=== PATIENT | female | born 1940 | race Caucasian/White ===

== ENCOUNTER 2018-11-23 20:52 | Inpatient (IN) ==
[2018-11-23 21:17] LABS: BE -9.7 mmoll (-3.0-3.0); BLOOD TYPE ARTERIAL; HCO3-(ACT) 17.4 mmoll (20.0-26.0); O2(CT) 19.9 mL/dL (15.0-23.0); O2HB 97.2 % (95.0-99.0); PCO2(98.6) 29 mmHg (35-45); PO2(98.6) 182 mmHg (60-100); SAMPLE BLOOD; SAO2 100.3 % (95.0-100.0); THB 14.3 g/dL (11.5-17.4); pH(98.6) 7.32 (7.35-7.45)
[2018-11-23 21:19] LABS: ALLEN TEST NO; MODALITY CANNULA
--- NOTE | 2018-11-23 21:43 | Diag Imaging Result Doc PS360 ---
EXAM: CHEST-PORTABLE INDICATION: SOB TECHNIQUE: One view COMPARISON: 10/08/2018 FINDINGS: There is stable chronic appearing interstitial thickening throughout both lungs. There is more gas focal scarring in the right suprahilar region that is stable. There is stable platelike scarring versus atelectasis in the left midlung zone. No new consolidation is appreciated. There is no discrete pleural fluid collection or pneumothorax. Cardiac silhouette is unremarkable. IMPRESSION: Stable fibrotic changes as described. No definite acute chest pathology by plain radiograph. Electronically signed by Brady Goldstein 11/23/2018 9:40 PM
[2018-11-23 22:03] LABS: INFLUENZA A NEGATIVE (NEGATIVE); INFLUENZA B NEGATIVE (NEGATIVE)
[2018-11-23 22:11] LABS: INR 0.87; PROTIME 12.3 Seconds (11.0-16.0)
[2018-11-23 22:12] LABS: PTT 20.6 Seconds (22.3-41.8)
[2018-11-23 22:19] LABS: BASO# 0.01 X1000 (0.0-0.2); BASO% 0.1 % (0.0-0.8); EOS% 0.6 % (0.0-10.0); HEMOGLOBIN 14.2 g/dL (12.0-16.0); IMM GRAN# 0.05 X1000 (0.0-0.04); IMM GRAN% 0.3 % (0.0-0.5); LYMPH# 1.18 X1000 (1.2-3.4); LYMPH% 6.7 % (20.5-51.1); MCH 31.1 PG (27-31); MCHC 33.8 g/dL (33-37); MCV 92.1 FL (81-99); MONO% 6.3 % (1.7-9.3); NEUT# 15.08 X1000 (1.4-6.5); PLT 165 X1000 (130-400); RBC 4.56 XMIL (4.2-5.4); RDW 13.5 % (11.5-14.5); WBC 17.52 X1000 (4.8-10.8)
[2018-11-23 22:32] LABS: ALBUMIN 4.4 g/dL (3.5-5.0); CALCIUM 9.5 mg/dL (8.8-10.2); CREATININE 1.7 mg/dL (0.5-0.9); TOTAL BILIRUBIN 0.6 mg/dL (0.20-1.00); TOTAL PROTEIN 6.4 g/dL (6.3-8.3)
[2018-11-23] MEDS ORDERED: ROCEPHIN 1 GM in NS 50 ML IV ONE (22:32)
[2018-11-23] MEDS ORDERED: ZITHROMAX PO ONE (22:32)
[2018-11-23 22:34] LABS: POTASSIUM 8.1 mmol/L (3.5-5.1)
[2018-11-23] MEDS ORDERED: D50W SYRINGE IV ONE (22:34)
[2018-11-23] MEDS ORDERED: HUMULIN R IV ONE (22:35)
[2018-11-23] MEDS ORDERED: KAYEXALATE PO ONE (22:35)
[2018-11-23 22:36] LABS: MAGNESIUM 1.7 mg/dL (1.5-2.7)
[2018-11-23 22:54] LABS: CK INDEX 1.9 (0.0-2.5); CK-MB 11.85 ng/mL (0.0-5.0)
--- NOTE | 2018-11-23 23:40 | EKG Report ---
Test Performed on : 11/23/2018 11:30:41 PM Test Reason : SYANOTIC Blood Pressure : / mmHG Vent. Rate : 078 BPM Atrial Rate : 078 BPM P-R Int : 132 ms QRS Dur : 082 ms QT Int : 480 ms P-R-T Axes : 041 -12 101 degrees QTc Int : 547 ms Sinus rhythm. with frequent premature ventricular complexes. Possible Anterior infarct (cited on or before 08-OCT-2018) ST & T wave abnormality, consider lateral ischemia Abnormal ECG When compared with ECG of 08-OCT-2018 19:05, (Unconfirmed) fusion complexes are no longer present T wave inversion now evident in Lateral leads QT has lengthened Unconfirmed Result
[2018-11-24 01:43] LABS: BILIRUBIN URINE 1+ (NEGATIVE); BLOOD URINE 4+ (NEGATIVE); KETONE URINE 1+(Small) mg/dL (NEGATIVE); LEUKOCYTES URINE TRACE (NEGATIVE); NITRITE URINE NEGATIVE (NEGATIVE); PROTEIN URINE 1+(30 mg/dL) mg/dL (NEGATIVE); UROBILINOGEN URINE NORMAL
[2018-11-24 01:44] LABS: CLARITY SL. CLOUDY (CLEAR); COLOR AMBER; URINE BACTERIA 1+ /HFP; URINE EPITHELIAL CELLS <10 /HPF (<10); URINE SOURCE CATH; URINE WBC <10 /HPF (<10)
[2018-11-24 01:45] LABS: URINE CAST GRANULAR PRESENT /LPF
--- NOTE | 2018-11-24 02:51 | PROVIDER DOCUMENTATION ---
This chart was entered by Jordi Frias Scribe, acting as scribe for Markus Weston MD. HPI-General Adult - General Chief Complaint: Fall Stated Complaint: FALL Time Seen by Provider: 11/23/18 21:00 Source: patient Allergies/Adverse Reactions: Patient Allergies Allergy/AdvReac Type Severity Reaction Status Date / Time acetaminophen [From [place]] Allergy Unknown Verified 10/08/18 18:09 hydrocodone [From [place]] Allergy Unknown Verified 10/08/18 18:09 Home Medications: Home Medication List Medication Instructions Recorded Confirmed Last Taken Type Gabapentin 300 mg PO TID 03/16/15 11/23/18 03/18/15 19:00 History Donepezil HCl 1 tab PO DAILY 11/23/18 11/23/18 Unknown History Ergocalciferol (Vitamin D2) 1 cap PO DIRECTED 11/23/18 11/23/18 Unknown History [Vitamin D2] Memantine HCl 1 tab PO BID 11/23/18 11/23/18 Unknown History Potassium Chloride [Klor-Con M20] 1 tab PO TID 11/23/18 11/23/18 Unknown History Sertraline [Zoloft] 1 tab PO DAILY 11/23/18 11/23/18 Unknown History - History of Present Illness -Gen Adult Nature of Presenting Problems: Pt is a 77 yof who presents to the ED via EMS with a CC of a fall. EMS reports the pt stated she has fallen four times today in her bedroom, and states the pt hit her head on the last fall. Pt states she did not lose consciousness. EMS reports pt has "early dementia." Pt is currently complaining of a headache. Pt also complains of having a cough for 1-2 weeks with sputum production and describes the sputum as clear and thick. Pt reports a hx of lung cancer. Pt denies being SOB but EMS states the highest oxygen saturation they recorded was 70-80% on 15% mask. Upon examination pt was cyanotic to the hands and feet. Pt incorrectly stated the current month and year, but correctly stated the current president's name. Pt also reports she lives at home with her son. Location of Pain/Injury: reports: head (Headache) Quality of Pain: reports: aching Severity: reports: mild Onset/Duration: reports: just prior to arrival, 1/2 hour ago Timing: reports: still present Context/Activities at Onset: reports: light activity Associated Symptoms: reports: sinus congestion/drainage Similar Symptoms Previously?: No Recently seen or treated by another doctor?: No Review of Systems - Adult - REVIEW OF SYSTEMS - ADULT Constitutional: reports: see HPI. denies: chills, fever, fatique, night sweats Eyes: reports: no symptoms reported Ears, Nose, Mouth & Throat: reports: no symptoms reported Cardiovascular: reports: no symptoms reported Respiratory: reports: no symptoms reported Gastrointestinal: reports: no symptoms reported Genitourinary: reports: no symptoms reported Musculoskeletal: reports: no symptoms reported Integumentary: reports: no symptoms reported Neurological: reports: see HPI, ataxia, headache/migraines (headache), loss of balance. denies: paresthesia, seizure, slurred speech, syncope, tremors Psychiatric: reports: no symptoms reported Endocrine: reports: no symptoms reported Hematologic/Lymphatic: reports: no symptoms reported Allergic/Immunologic: reports: no symptoms reported All Other Systems: Reviewed and Negative Past History - Adult - PAST MEDICAL HISTORY-ADULT Review of Records: reports: Old Records Reviewed, Nursing Assessment Review, Medications Reviewed, Social history reviewed & non-contributory. Major Childhood Illnesses: reports: denies history Cardiovascular: reports: denies history Respiratory: reports: cancer (lung) Gastrointestinal: reports: denies history Obstetrical/Gynecological: reports: denies history Genitourinary: reports: denies history Musculoskeletal: reports: denies history Neurological: reports: denies history Endocrine/Immune: reports: denies history Other Conditions: reports: denies history - IMMUNIZATION STATUS Childhood Immunizations: See Nurse Assessment Flu Vaccine: See Nurse Assessment - FAMILY HISTORY Family History: reviewed, not pertinent - SOCIAL HISTORY Smoking: denies, quit greater than 1 year Substance Use: none/never, denies Alcohol Use Frequency: never Physical Exam-General - PHYSICAL EXAM-ADULT Initial Vital Signs Reviewed: Yes - CONSTITUTIONAL General Appearance: appears well, alert, mild distress. negative: severe distress, cachetic, obese, anxious - EYES Eyes: PERRL/EOMI. negative: photophobia, sclera injected, scleral icterus - NECK Neck: non-tender, full range of motion. negative: limited range of motion, lymphadenopathy, meningismus, trachial deviation, tender lateral - RESPIRATORY Respiratory: chest non-tender, lungs clear, normal breath sounds, no pleuratic chest pain, no respiratory distress, no accessory muscle use. negative: accessory muscle use, crackles, rales, rhonchi, stridor, wheezing, dull on percussion - CARDIOVASCULAR Cardiovascular: normal peripheral pulses, regular rate, rhythm, no edema, no gallop, no JVD, no murmur. negative: bradycardia, tachycardia, diastolic murmur, systolic murmur, gallop/S4, friction rub - GASTROINTESTINAL (ABDOMEN) Abdominal Exam: normal bowel sounds, non tender, soft. negative: guarding, rigid, rebound, tenderness, hernia, mass, hepatomegaly - MUSCULOSKELETAL Extremity: normal range of motion, non-tender, normal gait. negative: no calf tenderness, normal capillary refill, calf tenderness, deformity, erythema, inflammation - SKIN Integumentary: cyanosis (Toes and fingers). negative: jaundice, laceration(s), mottled, pallor, petechiae, rash, swelling, tenderness - NEUROLOGIC Neurologic: grossly normal, no motor/sensory deficits. negative: abnormal gait, aphasia, EOM palsy, facial droop, focal weakness - PSYCHIATRIC Psych/Mental Status: normal mood/affect, normal thought process. negative: disoriented x 3, anxious, disheveled, depressed affect Progress - PLAN OF CARE/RESULTS Progress/Plan/Lab Results: Vital Signs - 8 hr 11/23/18 20:46 Temperature 97.8 F Pulse Rate 59 L Respiratory Rate 20 Blood Pressure 148/108 Orders Category Date Time Status ABG [RESP] Routine Lab 11/23/18 20:59 Ordered Result Diagrams: 11/23/18 21:50 11/23/18 21:51 - REASSESSMENT Reassessment #1 Time Reassessed: 22:37 Status: unchanged (CXR read as stable fibrotic per dr Brady Goldstein. however, some degree of infiltrate could be hidden. note leukocytosis, note re-checked and non-hemolysed hyperkalemia: rocephin,D50,insulin. pending renal fxn before ordering CT scans) Reassessment #2 Time Reassessed: 02:46 Status: improving (LEUKOCTOSIS, OCUGHING THICK FOUL SPUTUM. PROBABLE PNEUMONIA. 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 NO LACTIC ACIDOSIS. ADMIT TO ICU. ELEV Cr AND ELEV BNP.) - EKG 1 Time of EKG reading by physician:: 23:34 EKG Read and Signed by:: Markus Weston EKG Interpretation (*Must complete 3 of following elements*): Abnormal (Possible anterior infarct, age undetermined; ST & T wave abnormality, consider lateral ischemia; Abnormal ECG; No STEMI) Rate: 78 Rhythm: Sinus rhythm with frequent premature ventricular complexes [place]: normal QRS: normal [place] Interval: normal ST Wave: normal - XRAY 1 XRAY: Bilateral XRAY Study: Chest Impression: See EMR Report ( EXAM: CHEST-PORTABLE INDICATION: SOB TECHNIQUE: One view COMPARISON: 10/08/2018 FINDINGS: There is stable chronic appearing interstitial thickening throughout both lungs. There is more gas focal scarring in the right suprahilar region that is stable. There is stable platelike scarring versus atelectasis in the left midlung zone. No new consolidation is appreciated. There is no discrete pleural fluid collection or pneumothorax. Cardiac silhouette is unremarkable. IMPRESSION: Stable fibrotic changes as described. No definite acute chest pathology by plain radiograph. Electronically signed by Brady Goldstein 11/23/2018 9:40 PM 11/23/182139 Interpr eting Physician: Brady Goldstein MD Dictated Date/Time: 11/23/182137 cc: Markus Weston MD;) - CT/MRI 1 CT Study: Head Impression: See EMR Report (Findings: 4.3 mm saccular aneurysm of the M2 segment right middle cerebral artery, image 57 series 2. No acute intracranial hemorrhage, hydrocephalus or shift. No acute fracture or suspicious bone lesion. Impression: No acute intracranial disease. 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 Recommend consideration for CT angiography brain. Signed by Garrett Solomon MD 11/24/18 1:51) Comparison with other Films: no prior study - CONSULTS/PCP/HOSPITALIST Notification #1 *Consult/PCP/Hospitalist*: DR GREER Time Discussed: 02:46 Consult Disposition: Admit (ICU) Departure - Departure Date of Disposition Decision: 11/23/18 Time of Disposition Decision: 02:49 DIAGNOSIS: Pneumonia, Leukocytosis, unspecified, Hyperkalemia, Elevation of cardiac enzymes Disposition: ADMITTED INPATIENT 09 Certified Medical Emergency: Emergent Condition: Fair Referrals and Follow-Ups: None,PCP [Primary Care Provider] - - Critical Care Note This patient required my direct & personal management of CC.: No Attestation - Physician/ CARMELINA Attestation Patient care was provided by Advanced Practice Provider:: No The physician spent face to face time with patient:: Yes Advanced Practice Provider documentation review:: Supervising physician onsite and consulted in the evaluation and care of this patient. The physician did have a face to face encounter with the patient. This chart was documented by the indicated scribe, (Jordi Frias Scribe) and accurately reflects the services I performed and decisions made by me, Markus Weston MD, as attested by the provider's signature.
[2018-11-24 04:47] LABS: POTASSIUM 5.8 mmol/L (3.5-5.1)
[2018-11-24 04:48] LABS: CK INDEX 2.2 (0.0-2.5); CK-MB 11.29 ng/mL (0.0-5.0)
[2018-11-24] MEDS ORDERED: NS 1,000 ML IV ONE ×2 (05:10→11:06)
[2018-11-24] MEDS: DUONEB (A & A) INH SCH ×6 (06:47→22:43)
[2018-11-24 07:59] LABS: BASO# 0.01 X1000 (0.0-0.2); BASO% 0.1 % (0.0-0.8); EOS# 0.01 X1000 (0.0-0.7); EOS% 0.1 % (0.0-10.0); HEMATOCRIT 35.4 % (37.0-47.0); HEMOGLOBIN 11.7 g/dL (12.0-16.0); IMM GRAN# 0.03 X1000 (0.0-0.04); IMM GRAN% 0.3 % (0.0-0.5); LYMPH# 1.16 X1000 (1.2-3.4); LYMPH% 10.6 % (20.5-51.1); MCH 31.3 PG (27-31); MCHC 33.1 g/dL (33-37); MCV 94.7 FL (81-99); MONO# 0.64 X1000 (0.11-0.59); MONO% 5.9 % (1.7-9.3); MPV 11.2 FL (7.4-10.4); NEUT# 9.08 X1000 (1.4-6.5); PLT 138 X1000 (130-400); RBC 3.74 XMIL (4.2-5.4); RDW 13.5 % (11.5-14.5); WBC 10.93 X1000 (4.8-10.8)
[2018-11-24 08:41] LABS: ALBUMIN 3.3 g/dL (3.5-5.0); CALCIUM 8.4 mg/dL (8.8-10.2); CREATININE 1.5 mg/dL (0.5-0.9); POTASSIUM 5.1 mmol/L (3.5-5.1); TOTAL BILIRUBIN 0.5 mg/dL (0.20-1.00); TOTAL PROTEIN 5.4 g/dL (6.3-8.3)
[2018-11-24 09:19] LABS: CK INDEX 2.4 (0.0-2.5); CK-MB 8.74 ng/mL (0.0-5.0)
[2018-11-24] MEDS: ARICEPT PO SCH (09:40)
--- NOTE | 2018-11-24 09:53 | Diag Imaging Result Doc PS360 ---
EXAM: CT HEAD W/O CONTRAST INDICATION: fall, head injury TECHNIQUE: This exam was performed using automated exposure control, adjustment of mA or kV according to patient size, and/or use of iterative reconstruction technique. COMPARISON: 10/08/2018 FINDINGS: There is age-appropriate diffuse brain atrophy. There is no definite acute infarct given the limited sensitivity of CT versus MRI. There is rounded focal prominence involving the M2 segment of the right MCA adjacent to the anterior right temporal lobe that can be seen on image 56 of series 2. It is possible this represents a small aneurysm. It measures approximately 5 mm. It was probably present on the previous studies dating back to 2016 and is likely stable. However, it is better appreciated due to the thin slices of the current study is compared to previous studies. If clinically warranted, CTA of the head without the confirm this. Otherwise, there is no discrete intracranial mass, mass effect, or intracranial hemorrhage. The surrounding soft tissues and bony structures are essentially unremarkable. IMPRESSION: 1.Questionable small aneurysm involving the M2 segment of the right MCA. Please see above discussion. 2.No evidence of acute intracranial pathology by CT. Electronically signed by Brady Goldstein 11/24/2018 9:51 AM
[2018-11-24] MEDS ORDERED: NS 1,000 ML ONE (14:15)
--- NOTE | 2018-11-24 14:18 | HISTORY AND PHYSICAL ---
PRIMARY CARE PHYSICIAN: Dr. Mayorga in [place]. CHIEF COMPLAINT: Confusion. HISTORY OF PRESENT ILLNESS: This is a 77-year-old female that presents to the ED per EMS for 4 falls stating that she was concerned she had hit her head. Complains of headache but no loss of consciousness and EMS stated that she has "early dementia." Patient complained of coughing for 1 to 2 weeks. EKG in the ER shows sinus rhythm with frequent PVCs, ST and T-wave abnormalities. Chest x-ray showed stable fibrotic changes. CT of the head showed no acute intracranial disease, but did present a 4.3 cm in diameter aneurysm in the right middle cerebral artery without evidence of a bleed. PAST MEDICAL HISTORY: 1. Lung cancer. 2. Right upper lobe squamous cell. 3. Anxiety. PAST SURGICAL HISTORY: 1. Hysterectomy. 2. Back, thoracic fractures to 2 and 3 in September of 2015. FAMILY HISTORY: Positive for Alzheimer's and positive for heart disease and dementia in other family members. SOCIAL HISTORY: The patient is a former smoker, quit in 2016; had a 2 pack per day smoking history for 55 years. Denies alcohol and illicit drug use. retired farmworker and business and financial counsel. live at home with her son. REVIEW OF SYSTEMS: General: Patient denies any fevers, chills at this time, or weight changes. HEENT: Patient denies congestion, rhinorrhea. Headache on admission to the emergency room. Denies headache presently. Denies vision changes, hoarseness, or dizziness. Neck: Denies neck pain. Endocrine: Denies excessive thirst, urination, intolerance to heat or cold. CV: Denies palpitations, chest pain, orthopnea. Respiratory: The patient does state she had a cough for 1 to 2 weeks with foul sputum. GI: Denies anorexia, nausea, vomiting, or pain. Denies diarrhea, constipation. : No urinary urgency, frequency, or burning. Musculoskeletal: No symptoms noted. Skin: No symptoms reported. Neurologic: The patient denies any paresthesias, seizures, syncope, or tremors. The patient does state she has had a loss of balance. Psychiatric: No psychiatric symptoms. History of anxiety. Hematologic: Denies bruising. ALLERGIES: Patient is allergic to acetaminophen and hydrocodone. HOME MEDICATIONS: Gabapentin 300 mg p.o. t.i.d., donepezil HCl 1 tab p.o. daily, vitamin B2 one capsule p.o. as directed, memantine 1 tablet p.o. b.i.d., potassium 1 tablet p.o. t.i.d., and Zoloft 1 tablet p.o. daily. Medications will be reconciled. LABORATORY: WBCs of 10.93, RBCs 3.74, hemoglobin and hematocrit are 11.7 and 35.4. PT 12.3, INR 0.87, PTT of 20.6. D-dimer 4.05. Admission blood gases showed a pH of 7.32, pCO2 29, PO2 of 182, HCO3 of 17.4 with a base excess of -0.97. Sodium 137, potassium initially 8.1 and now 5.1, chloride of 109, carbon dioxide of 15, BUN of 30 with a creatinine initial 1.7 and now 1.5, calcium of 8.4, magnesium 1.5. CK of 630 and now 369, CK-MB of 11.85 and 11.29. UA shows cloudy with positive +1 protein, +1, ketone, negative for nitrates, +1 bacteria. Influenza A and B are negative. Chest x-ray showed stable fibrotic changes as described. No definite acute chest pathology. EKG was sinus rhythm with frequent PVCs, ST-T wave abnormality. PHYSICAL EXAMINATION: VITAL SIGNS: Temperature 97.9, heart rate 98, respirations 18, blood pressure 116/66, and 95% on room air. GENERAL: This is a female, appears well nourished. HEENT: Normocephalic. PERRLA. Mucous membranes were moist. NECK: Supple with no lymphadenopathy noted. Trachea was midline. No JVD noted. CV: No murmurs, gallops, rubs were noted. Rate and rhythm were regular. RESPIRATORY: Slight wheezes to posterior bases bilaterally. Nonlabored respirations. No accessory muscle use. GI: Abdomen is soft and nontender. Bowel sounds x4 quadrants. NEUROLOGIC: Cranial nerves 2-12 grossly intact. MUSCULOSKELETAL: Patient was able to move all 4 extremities with 5/5 equal hand grasps. SKIN: Warm, dry, and intact. ASSESSMENT: 1. Pneumonia. 2. Leukocytosis. 3. Hyperkalemia. 4. Frequent falls 5. Elevated D Dimer 6. Mildly elevated troponins in setting of CKD 7. CKD 8. Brain anuerysm 4.3cm Right middle cerebral artery PLAN: Will admit to [facility] intensive care unit. Activity bed rest. Vital signs q.4 hours. Heart healthy diet. blood cultures, CMP, urine culture, CBC with differential, CK profile, and troponins q.8. CT of the head without contrast. Home medications reconciled and ordered. Medications albuterol treatment q.4 hours, donepezil. Normal saline at 100 mL/h, azithromycin 500 mg p.o. x1 dose. Ceftriaxone 1G x1 dose, dextrose D5 50 mL x1 dose, insulin 10 units IV 1 dose given, and Kayexalate was administered per ER. Further recommendations will be pending per patient's clinical course and response to therapy. Dictated by ABBEY Acosta for Syd Dhaliwal MD cc: Syd Dhaliwal MD [facility]
[2018-11-24] MEDS: ZOSYN 2.25 GM in NS 50 ML IV SCH ×2 (14:20→20:01)
[2018-11-24] MEDS: NS 1,000 ML IV SCH ×2 (15:30→20:01)
[2018-11-24 16:58] LABS: CK INDEX 2.8 (0.0-2.5); CK-MB 7.75 ng/mL (0.0-5.0)
--- NOTE | 2018-11-24 19:39 | HISTORY AND PHYSICAL ---
ADDENDUM: Patient seen and examined by myself. Full note dictated and discussed with nurse practitioner. Patient presented to the hospital due to acute metabolic encephalopathy. She is confused, disoriented. We will admit her to the hospital. Uncertain etiology of her current symptomatology. We will place her on antibiotics and will follow. She currently is in the ICU. cc: Syd Dhaliwal MD
[2018-11-25] MEDS: ZOSYN 2.25 GM in NS 50 ML IV SCH ×3 (01:13→17:24)
[2018-11-25] MEDS: DUONEB (A & A) INH SCH ×6 (03:12→22:51)
[2018-11-25] MEDS: NS 1,000 ML IV SCH ×3 (04:13→20:06)
[2018-11-25 05:52] LABS: CREATININE 1.1 mg/dL (0.5-0.9); POTASSIUM 3.6 mmol/L (3.5-5.1)
[2018-11-25 05:53] LABS: ALBUMIN 2.8 g/dL (3.5-5.0); CALCIUM 7.3 mg/dL (8.8-10.2); TOTAL BILIRUBIN 0.5 mg/dL (0.20-1.00); TOTAL PROTEIN 4.4 g/dL (6.3-8.3)
[2018-11-25 05:58] LABS: BASO# 0.01 X1000 (0.0-0.2); BASO% 0.2 % (0.0-0.8); EOS# 0.03 X1000 (0.0-0.7); EOS% 0.5 % (0.0-10.0); HEMATOCRIT 30.2 % (37.0-47.0); HEMOGLOBIN 9.7 g/dL (12.0-16.0); IMM GRAN# 0.02 X1000 (0.0-0.04); IMM GRAN% 0.3 % (0.0-0.5); LYMPH# 0.72 X1000 (1.2-3.4); MCH 30.4 PG (27-31); MCHC 32.1 g/dL (33-37); MCV 94.7 FL (81-99); MONO# 0.33 X1000 (0.11-0.59); MONO% 5.1 % (1.7-9.3); NEUT# 5.42 X1000 (1.4-6.5); NEUT% 82.9 % (42.2-75.2); PLT 116 X1000 (130-400); RBC 3.19 XMIL (4.2-5.4); RDW 13.4 % (11.5-14.5); WBC 6.53 X1000 (4.8-10.8)
--- NOTE | 2018-11-25 07:42 | Diag Imaging Result Doc PS360 ---
CHEST-PORTABLE - 11/25/2018 INDICATION: dyspnea COMPARISON: 11/23/2018 FINDINGS: Stable right suprahilar opacity at the mediastinum. There is some worsening patchy infiltrate mainly in the left lower lobe with poor visualization of the left hemidiaphragm. Otherwise stable scattered linear atelectasis in both midlungs. Heart size remains stable. IMPRESSION: Worsening, very mild atelectasis or infiltrate in the left lower lobe. Electronically signed by Mauricio Valderrama 11/25/2018 7:40 AM
[2018-11-25] MEDS: ARICEPT PO SCH (11:24)
--- NOTE | 2018-11-25 22:43 | PROGRESS NOTE ---
DATE: 11/25/2018 SUBJECTIVE: Patient is much improved. She has no complaints. PHYSICAL EXAMINATION: Vital Signs: Temperature 99 degrees, pulse 78, respiratory 18, BP 96/56. General: Patient is awake, alert. She is answer equal answering questions, responding to commands. She is much improved from yesterday's exam where she was completely sedated and nonverbal. HEENT: Normocephalic. Neck: Supple. Cardiovascular: Regular rate. No murmurs. Chest: Clear, nonlabored. Abdomen: Soft, nondistended. Extremities: Moves all extremities. ASSESSMENT: 1. Probable urinary tract infection. 2. Pneumonia. 3. Leukocytosis, improved. White count is down from 17 to 6. 4. Hyperkalemia, resolved. 5. Acute renal failure, improved. 6. Volume depletion, improved. 7. Elevated D-dimer. Improved down from 4 to 0.9. Ultrasound pending. 8. Frequent falls. 9. History of brain aneurysm. PLAN: We will continue patient in the hospital. Continue antibiotics, IV fluids, symptomatic control and we will follow. cc: Syd Dhaliwal MD
[2018-11-26] MEDS: ZOSYN 2.25 GM in NS 50 ML IV SCH ×4 (00:14→20:24)
[2018-11-26] MEDS: DUONEB (A & A) INH SCH ×6 (03:43→22:52)
[2018-11-26] MEDS: NS 1,000 ML IV SCH (04:19)
[2018-11-26 06:37] LABS: HEMATOCRIT 31.4 % (37.0-47.0); HEMOGLOBIN 10.2 g/dL (12.0-16.0); MCH 30.1 PG (27-31); MCHC 32.5 g/dL (33-37); MCV 92.6 FL (81-99); MPV 11.2 FL (7.4-10.4); RBC 3.39 XMIL (4.2-5.4); RDW 13.3 % (11.5-14.5); WBC 8.15 X1000 (4.8-10.8)
[2018-11-26 07:01] LABS: AGAP 11; CHLORIDE 113 mmol/L (98-107); GLUCOSE 85 mg/dL (70-104); POTASSIUM 2.7 mmol/L (3.5-5.1); SODIUM 144 mmol/L (136-145); TCO2 19 mmol/L (25-35)
[2018-11-26 07:02] LABS: ALBUMIN 2.7 g/dL (3.5-5.0); ALKALINE PHOSPHATASE 50 U/L (32-104); BUN 11 mg/dL (8-22); CALCIUM 7.1 mg/dL (8.8-10.2); COSMO 285; CREATININE 0.8 mg/dL (0.5-0.9); ESTIMATED GFR > 60; GOT 34 U/L (10-30); GPT 14 U/L (10-36); MAGNESIUM 1.1 mg/dL (1.5-2.7); TOTAL PROTEIN 4.6 g/dL (6.3-8.3)
[2018-11-26] MEDS: ARICEPT PO SCH (08:41)
[2018-11-26] MEDS ORDERED: KLOR-CON PO ONE (10:38)
[2018-11-26] MEDS ORDERED: MAGNESIUM SULFATE 2 GM/S.W.I. 2 GM/50 ML IVPB IV ONE (10:39)
[2018-11-26] MEDS: POTASSIUM CHLORIDE 20 MEQ/SWI 20 MEQ/100 ML IVPB IV SCH ×2 (11:44→14:21)
[2018-11-26] MEDS ORDERED: NS 1,000 ML IV SCH (12:54)
[2018-11-26] MEDS ORDERED: SEROQUEL PO PRN (13:17)
[2018-11-26] MEDS: MUCOMYST 20% INH SCH ×2 (14:50→19:21)
--- NOTE | 2018-11-26 14:57 | PROGRESS NOTE ---
DATE: 11/26/2018 SUBJECTIVE: Patient has no major complaints. She is very confused intermittently. OBJECTIVE: Blood pressure 141/79, heart rate 78, respiratory rate 20, temperature 98 degrees, 95% on room air. Cardiovascular: Regular rate and rhythm. Pulmonary: Bilateral breath sounds clear to auscultation. GI: Soft, nontender, nondistended. Bowel sounds were positive. Extremities: No clubbing or cyanosis. Lymphatic Examination: No peripheral edema. She is sitting up in bed, eating. Seems to be doing okay. Laboratory Data: White count is 8, hemoglobin and hematocrit 10 and 31, platelets 132,000. Potassium is down to 2.7. When she came in, it was 8. Her creatinine is down to 0.8 and her magnesium is 1.1. PROBLEM LIST: 1. Pneumonia which has worsened per x-ray. I think some of that may be just atelectasis from her respiratory status. We will continue breathing exercises. Add Mucomyst, spirometry, Acapella, and follow. Her white count is improved. She is afebrile. Clinically, she looks improved. X-rays sometimes may lag in improvement. 2. Acute renal failure. That has also improved. 3. Now hypokalemia. That is resolved. Hyper is resolved. I am not quite sure why she is losing so much potassium. We will evaluate for renal losses and follow. We will check some other measures. Her magnesium level is low. Sometimes that can also be associated with persistent hypokalemia. 4. Encephalopathy. She has baseline dementia. Obviously, it has worsened since she has been in the hospital but we will continue to monitor. I will add some low-dose Seroquel at night and we will continue to follow. DISPOSITION: Pending her clinical status. We need to see how she does, kind of getting up and around, and discuss with family about what they want to do long-term. We will continue to follow closely. cc: Conrad Givens MD
[2018-11-26] MEDS ORDERED: STERILE WATER INJ. INJ PRN (16:18)
[2018-11-26] MEDS ORDERED: STERILE WATER INJ. INJ ONE (16:18)
[2018-11-26] MEDS ORDERED: GEODON IM ONE (16:18)
[2018-11-26] MEDS ORDERED: GEODON IM PRN (16:18)
[2018-11-26] MEDS: ZYVOX 600 MG/D5W 600 MG/300 ML IVPB IV SCH (18:34)
[2018-11-26] MEDS ORDERED: ATIVAN IV PRN (21:01)
[2018-11-27] MEDS: ZOSYN 2.25 GM in NS 50 ML IV SCH ×4 (02:55→20:42)
[2018-11-27] MEDS: DUONEB (A & A) INH SCH ×6 (03:38→23:42)
[2018-11-27 07:19] LABS: HEMATOCRIT 32.6 % (37.0-47.0); HEMOGLOBIN 10.8 g/dL (12.0-16.0); MCH 30.6 PG (27-31); MCHC 33.1 g/dL (33-37); MCV 92.4 FL (81-99); PLT 135 X1000 (130-400); RBC 3.53 XMIL (4.2-5.4); RDW 13.4 % (11.5-14.5); WBC 9.08 X1000 (4.8-10.8)
[2018-11-27 07:20] LABS: EOS# 0.08 X1000 (0.0-0.7); EOS% 0.9 % (0.0-10.0); IMM GRAN# 0.04 X1000 (0.0-0.04); IMM GRAN% 0.4 % (0.0-0.5); LYMPH# 0.86 X1000 (1.2-3.4); LYMPH% 9.5 % (20.5-51.1); MONO# 0.52 X1000 (0.11-0.59); MONO% 5.7 % (1.7-9.3); NEUT# 7.58 X1000 (1.4-6.5); NEUT% 83.5 % (42.2-75.2)
[2018-11-27 07:39] LABS: AGAP 8; BUN 8 mg/dL (8-22); CALCIUM 7.5 mg/dL (8.8-10.2); CHLORIDE 114 mmol/L (98-107); COSMO 279; CREATININE 0.7 mg/dL (0.5-0.9); ESTIMATED GFR > 60; GLUCOSE 80 mg/dL (70-104); MAGNESIUM 1.3 mg/dL (1.5-2.7); POTASSIUM 3.2 mmol/L (3.5-5.1); SODIUM 141 mmol/L (136-145); TCO2 19 mmol/L (25-35)
[2018-11-27] MEDS: MUCOMYST 20% INH SCH ×2 (07:39→20:17)
[2018-11-27] MEDS: ARICEPT PO SCH (08:12)
[2018-11-27] MEDS: ZYVOX 600 MG/D5W 600 MG/300 ML IVPB IV SCH (08:12)
[2018-11-27] MEDS ORDERED: ZOSYN ONE (10:00)
[2018-11-27] MEDS ORDERED: MAGNESIUM SULFATE 2 GM/S.W.I. 2 GM/50 ML IVPB IV ONE (10:36)
--- NOTE | 2018-11-27 13:11 | PROGRESS NOTE ---
DATE: 11/27/2018 SUBJECTIVE: She is much more tempered today. She is not angry. She is answering questions. She is awake. She is alert. No complaints. Very different situation than yesterday where she was very agitated, and she required extra sedation last night. OBJECTIVE: Vital Signs: Blood pressure 131/63, heart rate 78, respiratory rate 16, temperature 98.1 degrees and 97% on 2 L. Cardiovascular: Regular rate and rhythm. Pulmonary: Bilateral breath sounds. Clear to auscultation. GI: Soft, nontender, and nondistended. Bowel sounds are positive. LABORATORY DATA: White count 9, hemoglobin and hematocrit 10 and 32, and platelets 135,000. Potassium is 3.2. Mag of 1.3. ProBNP was still very high 15,639. PROBLEM LIST: 1. Pneumonia. We will continue antibiotics. Overall, she seems improved. We will repeat her chest x-ray tomorrow. 2. Acute renal failure that has also resolved. I stopped her fluids. 3. Hypokalemia. We will continue supplements. I am checking urine and potassium. 4. Encephalopathy. She has some baseline dementia, which has gotten significantly worse since she has been in the hospital, but we have instituted Geodon and Seroquel, I am going to increase her Seroquel at night, and she seems to be just much more relaxed today. DISPOSITION: She will likely need physical therapy and possibly rehab. Initially, she was concerned that she may require inpatient psychiatric, but she seems to be doing better from that standpoint. We will continue to monitor. Anticipate discharge soon. We are looking at rehab bed. cc: Conrad Givens MD
[2018-11-27] MEDS: POTASSIUM CHLORIDE 20 MEQ/SWI 20 MEQ/100 ML IVPB IV SCH ×2 (13:13→16:43)
[2018-11-27] MEDS: NEURONTIN PO SCH ×2 (13:13→16:44)
[2018-11-27] MEDS: ZOLOFT PO SCH (13:13)
[2018-11-27] MEDS: NAMENDA PO SCH (20:43)
[2018-11-27] MEDS: SEROQUEL PO SCH (20:43)
[2018-11-28] MEDS: ZYVOX 600 MG/D5W 600 MG/300 ML IVPB IV SCH ×2 (00:15→12:54)
[2018-11-28] MEDS: DUONEB (A & A) INH SCH ×6 (03:43→22:34)
[2018-11-28] MEDS: ZOSYN 2.25 GM in NS 50 ML IV SCH ×4 (03:57→21:10)
[2018-11-28 06:20] LABS: EOS# 0.08 X1000 (0.0-0.7); EOS% 0.8 % (0.0-10.0); HEMATOCRIT 32.5 % (37.0-47.0); HEMOGLOBIN 10.9 g/dL (12.0-16.0); IMM GRAN# 0.06 X1000 (0.0-0.04); IMM GRAN% 0.6 % (0.0-0.5); LYMPH# 0.88 X1000 (1.2-3.4); MCH 30.8 PG (27-31); MCHC 33.5 g/dL (33-37); MCV 91.8 FL (81-99); MONO# 0.61 X1000 (0.11-0.59); MONO% 6.2 % (1.7-9.3); MPV 10.5 FL (7.4-10.4); NEUT# 8.17 X1000 (1.4-6.5); NEUT% 83.4 % (42.2-75.2); PLT 122 X1000 (130-400); RBC 3.54 XMIL (4.2-5.4); RDW 13.3 % (11.5-14.5)
[2018-11-28 06:38] LABS: AGAP 11; BUN 6 mg/dL (8-22); CHLORIDE 109 mmol/L (98-107); COSMO 277; CREATININE 0.6 mg/dL (0.5-0.9); GLUCOSE 102 mg/dL (70-104); POTASSIUM 2.9 mmol/L (3.5-5.1); SODIUM 140 mmol/L (136-145); TCO2 21 mmol/L (25-35)
[2018-11-28 06:39] LABS: CALCIUM 7.7 mg/dL (8.8-10.2); ESTIMATED GFR > 60; MAGNESIUM 1.5 mg/dL (1.5-2.7)
[2018-11-28] MEDS: MUCOMYST 20% INH SCH ×2 (08:15→20:01)
[2018-11-28] MEDS: NEURONTIN PO SCH ×3 (11:03→17:22)
[2018-11-28] MEDS: KLOR-CON PO SCH ×2 (11:03→21:01)
[2018-11-28] MEDS: ARICEPT PO SCH (11:03)
[2018-11-28] MEDS: ZOLOFT PO SCH (11:03)
[2018-11-28] MEDS: NAMENDA PO SCH ×2 (11:03→21:00)
[2018-11-28] MEDS ORDERED: KLOR-CON PO ONE (11:54)
--- NOTE | 2018-11-28 16:02 | PROGRESS NOTE ---
DATE: 11/28/2018 SUBJECTIVE: Patient has no complaints. OBJECTIVE: Blood pressure 138/81, heart rate 76, respiratory rate 18, temperature 97.8 degrees, 100% on 2 L.Cardiovascular: Regular rate and rhythm. Pulmonary: Bilateral breath sounds, clear to auscultation. GI: Soft, nontender, nondistended. Bowel sounds are positive. LABORATORY DATA: Potassium is still low 2.9 today, very low despite supplementation yesterday and both potassium, magnesium. PROBLEM LIST: 1. Pneumonia. She is on antibiotics. I feel like overall she has improved. 2. Acute renal failure that is also resolved. 3. Hypokalemia, hypomagnesemia. We will continue potassium supplementation. 4. Dementia. Primary which is stable and she is doing well on her current medications. She is on a little bit of Seroquel. I do not think she has required any other medications. DISPOSITION: We are looking at rehab. We will continue to follow. cc: Conrad Givens MD
[2018-11-28] MEDS: SEROQUEL PO SCH (21:01)
[2018-11-29] MEDS: ZYVOX 600 MG/D5W 600 MG/300 ML IVPB IV SCH ×2 (01:41→14:16)
[2018-11-29] MEDS: DUONEB (A & A) INH SCH ×6 (03:04→22:30)
[2018-11-29] MEDS: ZOSYN 2.25 GM in NS 50 ML IV SCH ×4 (05:00→21:35)
[2018-11-29 07:01] LABS: AGAP 8; BUN 6 mg/dL (8-22); CALCIUM 7.7 mg/dL (8.8-10.2); CHLORIDE 110 mmol/L (98-107); COSMO 275; CREATININE 0.6 mg/dL (0.5-0.9); ESTIMATED GFR > 60; GLUCOSE 99 mg/dL (70-104); MAGNESIUM 1.4 mg/dL (1.5-2.7); POTASSIUM 4.2 mmol/L (3.5-5.1); SODIUM 139 mmol/L (136-145); TCO2 22 mmol/L (25-35)
[2018-11-29] MEDS: MUCOMYST 20% INH SCH ×2 (08:18→20:02)
[2018-11-29] MEDS: ARICEPT PO SCH (10:16)
[2018-11-29] MEDS: KLOR-CON PO SCH ×3 (10:16→21:35)
[2018-11-29] MEDS: NAMENDA PO SCH ×2 (10:16→21:35)
[2018-11-29] MEDS: ZOLOFT PO SCH (10:17)
[2018-11-29] MEDS: NEURONTIN PO SCH ×3 (10:17→17:46)
[2018-11-29] MEDS: BLISTEX MEDICATED BERRY LIP BALM TOP PRN (11:39)
[2018-11-29] MEDS ORDERED: MAGNESIUM SULFATE 2 GM/S.W.I. 2 GM/50 ML IVPB IV ONE (12:16)
--- NOTE | 2018-11-29 20:29 | PROGRESS NOTE ---
DATE: 11/29/2018 SUBJECTIVE: Patient has no major complaints. OBJECTIVE: Blood pressure is 119/69, heart rate of 78, respiratory rate 18, temperature 98.6 degrees, 99% on 2 L.Cardiovascular: Regular rate and rhythm. Pulmonary: Bilateral breath sounds. Clear to auscultation. Gastrointestinal: Soft, nontender, nondistended. Bowel sounds are positive. LABORATORY DATA: Potassium is up to 4.2. Magnesium is at 1.4. Urine potassium was nothing, 25, 33, I mean not consistent with hypokalemia associated with potassium dumping. PROBLEM LIST: 1. Pneumonia. She is currently on Zyvox and Zosyn. I think we could probably downgrade that. The Zyvox was started on the , so 4 days. The Zosyn has been since the , so about 6 days. 2. Her dementia appears controlled on current medications including her Seroquel. 3. Hypokalemia, hypomagnesemia is finally stabilizing. DISPOSITION: We are looking at rehab bed, rehab potential. Her PT notes, she was seen today. She walked about 80 feet, so she did pretty well. So, we will discuss with her family about rehab versus we are waiting on rehab support by insurance and will continue to monitor. cc: Conrad Givens MD
[2018-11-29] MEDS: SEROQUEL PO SCH (21:35)
[2018-11-30] MEDS: DUONEB (A & A) INH SCH ×6 (03:30→23:00)
[2018-11-30] MEDS: ZOSYN 2.25 GM in NS 50 ML IV SCH ×4 (04:10→21:05)
[2018-11-30] MEDS: LOVENOX SUBQ SCH (05:06)
[2018-11-30] MEDS: ZYVOX PO SCH ×2 (05:06→17:38)
[2018-11-30 06:39] LABS: HEMATOCRIT 32.7 % (37.0-47.0); HEMOGLOBIN 10.6 g/dL (12.0-16.0); MCH 30.5 PG (27-31); MCHC 32.4 g/dL (33-37); MPV 10.1 FL (7.4-10.4); RBC 3.48 XMIL (4.2-5.4); RDW 13.5 % (11.5-14.5); WBC 11.1 X1000 (4.8-10.8)
[2018-11-30 07:28] LABS: AGAP 8; BUN 6 mg/dL (8-22); CALCIUM 8.1 mg/dL (8.8-10.2); CHLORIDE 108 mmol/L (98-107); COSMO 275; CREATININE 0.6 mg/dL (0.5-0.9); ESTIMATED GFR > 60; GLUCOSE 93 mg/dL (70-104); MAGNESIUM 1.6 mg/dL (1.5-2.7); SODIUM 139 mmol/L (136-145); TCO2 23 mmol/L (25-35)
[2018-11-30] MEDS: MUCOMYST 20% INH SCH ×2 (08:00→19:52)
[2018-11-30] MEDS: NEURONTIN PO SCH ×3 (10:10→17:11)
[2018-11-30] MEDS: ARICEPT PO SCH (10:10)
[2018-11-30] MEDS: KLOR-CON PO SCH (10:10)
[2018-11-30] MEDS: NAMENDA PO SCH ×2 (10:10→21:05)
[2018-11-30] MEDS: ZOLOFT PO SCH (10:10)
--- NOTE | 2018-11-30 15:30 | Diag Imaging Result Doc PS360 ---
CHEST-2 VIEWS - 11/30/2018 INDICATION: hypoxia COMPARISON: 11/25/2018 FINDINGS: Stable COPD changes. Stable small bilateral pleural effusions. Stable right hilar enlargement. Stable streaky scarring or infiltrate in the right lung apex. No new infiltrates. Heart size remains slightly enlarged. IMPRESSION: No change from prior. Electronically signed by Mauricio Valderrama 11/30/2018 3:27 PM
[2018-11-30] MEDS: SEROQUEL PO SCH (21:05)
--- NOTE | 2018-11-30 21:28 | PROGRESS NOTE ---
DATE: 11/30/2018 SUBJECTIVE: Patient has no major complaints. OBJECTIVE: Vital Signs: Blood pressure is 112/69, heart rate 79, respiratory rate 18, temperature 98.3, saturation 100% on 2 L. Cardiovascular: Regular rate and rhythm. Pulmonary: Bilateral breath sounds. Clear to auscultation. GI: Soft, nontender, nondistended. Bowel sounds are positive. Extremities: No clubbing or cyanosis. Lymphatic: No peripheral edema. Neurological: Nonfocal. She seems to be doing okay. LABORATORY DATA: Her potassium is at 5. Her magnesium is at 1.6. Her white count has jumped up a little bit at 11. No fevers and no general complaints. PROBLEM LIST: 1. Hypokalemia, hypomagnesemia. We will continue treatment and follow. 2. Pneumonia. She is on Zyvox and Zosyn, so about 5 days and 6 days. We will continue to follow. I am going to repeat her chest x-ray and see if she has had any other issues there. 3. Dementia, stable. We will continue Seroquel, and will continue to follow. DISPOSITION: We are awaiting rehab placement, and we will continue to follow closely. She seems to be doing well overall, and we will continue to monitor her closely. cc: Conrad Givens MD
[2018-12-01] MEDS: DUONEB (A & A) INH SCH ×6 (03:51→22:39)
[2018-12-01] MEDS: LOVENOX SUBQ SCH (05:24)
[2018-12-01] MEDS: ZOSYN 2.25 GM in NS 50 ML IV SCH ×3 (05:24→17:24)
[2018-12-01] MEDS: ZYVOX PO SCH ×2 (05:24→17:23)
[2018-12-01 07:21] LABS: BASO# 0.01 X1000 (0.0-0.2); BASO% 0.1 % (0.0-0.8); EOS# 0.19 X1000 (0.0-0.7); EOS% 1.7 % (0.0-10.0); HEMATOCRIT 34.5 % (37.0-47.0); HEMOGLOBIN 11.4 g/dL (12.0-16.0); IMM GRAN# 0.05 X1000 (0.0-0.04); IMM GRAN% 0.5 % (0.0-0.5); LYMPH# 1.13 X1000 (1.2-3.4); LYMPH% 10.2 % (20.5-51.1); MCH 31.3 PG (27-31); MCV 94.8 FL (81-99); MONO# 0.59 X1000 (0.11-0.59); MONO% 5.3 % (1.7-9.3); MPV 9.9 FL (7.4-10.4); NEUT# 9.07 X1000 (1.4-6.5); NEUT% 82.2 % (42.2-75.2); PLT 129 X1000 (130-400); RBC 3.64 XMIL (4.2-5.4); RDW 13.4 % (11.5-14.5); WBC 11.04 X1000 (4.8-10.8)
[2018-12-01 07:25] LABS: AGAP 8; BUN 7 mg/dL (8-22); CALCIUM 8.4 mg/dL (8.8-10.2); CHLORIDE 108 mmol/L (98-107); COSMO 277; CREATININE 0.6 mg/dL (0.5-0.9); ESTIMATED GFR > 60; GLUCOSE 92 mg/dL (70-104); MAGNESIUM 1.5 mg/dL (1.5-2.7); POTASSIUM 4.9 mmol/L (3.5-5.1); SODIUM 140 mmol/L (136-145); TCO2 25 mmol/L (25-35)
[2018-12-01] MEDS: MUCOMYST 20% INH SCH ×2 (08:16→20:18)
[2018-12-01] MEDS: ARICEPT PO SCH (08:40)
[2018-12-01] MEDS: NEURONTIN PO SCH ×4 (08:40→17:23)
[2018-12-01] MEDS: NAMENDA PO SCH ×2 (08:40→20:13)
[2018-12-01] MEDS: ZOLOFT PO SCH (08:40)
--- NOTE | 2018-12-01 14:55 | PROGRESS NOTE ---
DATE: 12/01/2018 SUBJECTIVE: Patient has no major complaints. OBJECTIVE: Vitals: Blood pressure is 122/80, heart rate of 82, respiratory rate 18, temperature 97.7 degrees. Cardiovascular: Regular rate and rhythm. Pulmonary: Bilateral breath sounds clear to auscultation. GI: Soft, nontender, nondistended. Bowel sounds are positive. LABS: White count still up just a bit 11, hemoglobin and hematocrit 11 and 34, platelets 129,000. Basic looked okay. PROBLEM LIST: 1. Hypokalemia, hypomagnesemia. She seems to be doing okay from that standpoint. No major issues. 2. Pneumonia, right lower lobe. She is on Zyvox and Zosyn. Continue treatment. Her chest x-ray is stable. No major white count. Zyvox we switched to p.o. She is on 6 and 7 of those, so we switched her to something oral. 3. Dementia. She is stable on the Seroquel. DISPOSITION: We are still awaiting rehab approval. Continue to monitor. cc: Conrad Givens MD
[2018-12-01] MEDS: SEROQUEL PO SCH (20:13)
[2018-12-01] MEDS ORDERED: NS 500 ML IV ONE (22:51)
[2018-12-02] MEDS: ZOSYN 2.25 GM in NS 50 ML IV SCH ×4 (00:50→17:31)
[2018-12-02] MEDS: DUONEB (A & A) INH SCH ×6 (03:51→23:31)
--- NOTE | 2018-12-02 04:14 | EKG Report ---
Test Performed on : 12/01/2018 10:38:21 PM Test Reason : CP Blood Pressure : / mmHG Vent. Rate : 085 BPM Atrial Rate : 085 BPM P-R Int : 122 ms QRS Dur : 082 ms QT Int : 412 ms P-R-T Axes : 052 002 094 degrees QTc Int : 490 ms Normal sinus rhythm. Nonspecific T wave abnormality Abnormal ECG When compared with ECG of 23-NOV-2018 23:30, (Unconfirmed) premature ventricular complexes. are no longer present T wave inversion no longer evident in Lateral leads QT has shortened Confirmed by Denys Malcolm MD ([id number]) on 12/11/2018 9:41:35 PM
[2018-12-02] MEDS: ZYVOX PO SCH ×2 (05:43→17:32)
[2018-12-02] MEDS: LOVENOX SUBQ SCH (05:43)
[2018-12-02] MEDS: MUCOMYST 20% INH SCH ×2 (08:32→19:56)
[2018-12-02] MEDS: ARICEPT PO SCH (08:59)
[2018-12-02] MEDS: ZOLOFT PO SCH (09:00)
[2018-12-02] MEDS: NEURONTIN PO SCH ×3 (09:01→17:32)
[2018-12-02] MEDS: NAMENDA PO SCH ×2 (09:01→20:28)
--- NOTE | 2018-12-02 17:03 | PROGRESS NOTE ---
DATE: 12/02/2018 SUBJECTIVE: The patient has no major complaints. OBJECTIVE: Vital signs: Blood pressure 102/60, heart rate of 89, respiratory rate 16, temperature 98.6 degrees. Cardiovascular: Regular rate and rhythm. Pulmonary: Bilateral breath sounds. Clear to auscultation. GI: Soft, nontender, nondistended. Bowel sounds are positive. LABORATORY DATA: I do not have any new data today. PROBLEM LIST: 1. Hypokalemia, hypomagnesemia. She has improved. We will continue to follow. 2. Right lower lobe. She is on days 7 of Zyvox, day 8 of Zosyn; maybe complete a course of 10 days on both. Chest x-ray is stable. Will repeat her labs in the morning since she is still here. 3. Dementia. Appears to be overall stabilized. DISPOSITION: Our plan is for inpatient rehab but we are waiting on insurance approval and we will continue to follow. cc: Conrad Givens MD
[2018-12-02 18:13] LABS: AGAP 13; ALBUMIN 2.2 g/dL (3.5-5.0); ALKALINE PHOSPHATASE 42 U/L (32-104); BUN 8 mg/dL (8-22); CALCIUM 7.9 mg/dL (8.8-10.2); CHLORIDE 107 mmol/L (98-107); COSMO 275; CREATININE 0.7 mg/dL (0.5-0.9); ESTIMATED GFR > 60; GLUCOSE 111 mg/dL (70-104); GOT 23 U/L (10-30); GPT 12 U/L (10-36); POTASSIUM 4.2 mmol/L (3.5-5.1); SODIUM 138 mmol/L (136-145); TCO2 18 mmol/L (25-35); TOTAL PROTEIN 4.7 g/dL (6.3-8.3)
[2018-12-02] MEDS ORDERED: G.I. COCKTAIL PO ONE (20:17)
[2018-12-02] MEDS: SEROQUEL PO SCH (20:29)
[2018-12-03] MEDS: ZOSYN 2.25 GM in NS 50 ML IV SCH ×4 (00:01→17:07)
[2018-12-03] MEDS: DUONEB (A & A) INH SCH ×6 (03:14→22:40)
[2018-12-03] MEDS: ZYVOX PO SCH ×2 (05:35→17:07)
[2018-12-03] MEDS: LOVENOX SUBQ SCH (05:35)
[2018-12-03] MEDS: MUCOMYST 20% INH SCH ×2 (07:34→19:28)
[2018-12-03 07:46] LABS: BASO# 0.01 X1000 (0.0-0.2); BASO% 0.1 % (0.0-0.8); EOS# 0.08 X1000 (0.0-0.7); EOS% 0.8 % (0.0-10.0); HEMATOCRIT 32.1 % (37.0-47.0); HEMOGLOBIN 10.2 g/dL (12.0-16.0); IMM GRAN# 0.02 X1000 (0.0-0.04); IMM GRAN% 0.2 % (0.0-0.5); LYMPH# 0.95 X1000 (1.2-3.4); LYMPH% 9.6 % (20.5-51.1); MCH 30.2 PG (27-31); MCHC 31.8 g/dL (33-37); MONO# 0.33 X1000 (0.11-0.59); MONO% 3.3 % (1.7-9.3); PLT 116 X1000 (130-400); RBC 3.38 XMIL (4.2-5.4); RDW 13.1 % (11.5-14.5); WBC 9.89 X1000 (4.8-10.8)
[2018-12-03] MEDS: NEURONTIN PO SCH ×3 (08:30→16:37)
[2018-12-03] MEDS: ZOLOFT PO SCH (08:30)
[2018-12-03] MEDS: NAMENDA PO SCH ×2 (08:30→20:39)
[2018-12-03] MEDS: ARICEPT PO SCH (08:31)
[2018-12-03 08:43] LABS: LYMPHS 9 % (21-51); MONO 2 % (1-9); SEGS 89 % (42-75)
--- NOTE | 2018-12-03 19:49 | PROGRESS NOTE ---
DATE: 12/03/2018 SUBJECTIVE: Patient has no complaints. Notes that she is feeling okay. PHYSICAL EXAMINATION: Vital Signs: Reviewed. Temperature 98 degrees, pulse 87, respiratory rate 18, BP 113/76. General: Patient is awake, alert. She is in no distress. HEENT: Normocephalic. Neck: Supple. Cardiovascular: Regular rate. No murmurs. Chest: Clear. No crackles. No wheezing. Abdomen: Soft, nondistended. Extremities: Moves all extremities. Neurologic: No focal changes. ASSESSMENT: 1. Hypokalemia, resolved. 2. Hypomagnesemia, resolved. 3. Right lower lobe pneumonia. Currently, she is still on Zyvox and Zosyn, with a plan to continue 10 days of each. 4. Dementia. PLAN: We will continue patient in the hospital. She is not physically capable of going home at this point. Hopefully, she can transition to rehab soon. cc: Syd Dhaliwal MD
[2018-12-03] MEDS: SEROQUEL PO SCH (20:39)
[2018-12-04] MEDS: ZOSYN 2.25 GM in NS 50 ML IV SCH ×4 (00:06→17:01)
[2018-12-04] MEDS: LOVENOX SUBQ SCH (05:07)
[2018-12-04] MEDS: ZYVOX PO SCH ×2 (05:07→17:01)
[2018-12-04] MEDS: DUONEB (A & A) INH SCH ×6 (06:43→22:56)
[2018-12-04] MEDS: MUCOMYST 20% INH SCH ×2 (07:48→19:07)
[2018-12-04] MEDS: NAMENDA PO SCH ×2 (09:09→21:00)
[2018-12-04] MEDS: ARICEPT PO SCH (09:09)
[2018-12-04] MEDS: NEURONTIN PO SCH ×3 (09:09→16:56)
[2018-12-04] MEDS: ZOLOFT PO SCH (09:09)
--- NOTE | 2018-12-04 19:51 | PROGRESS NOTE ---
DATE: 12/04/2018 SUBJECTIVE: The patient has no complaints. Notes she is feeling fine. PHYSICAL EXAM: Vital signs: Temperature 92, pulse 85, respiratory 18, BP 108/68. General: Patient is very pleasant. She is in no distress. HEENT: Normocephalic. Neck: Supple. Cardiovascular: Regular rate. No murmurs. Chest: Clear nonlabored. Abdomen: Soft nondistended. ASSESSMENT: 1. Hypokalemia, improved. 2. Hypomagnesemia, improved. 3. Right lower lobe pneumonia. She is on her final day of Zosyn and will have 1 more day of Zyvox. 4. Dementia. PLAN: We will continue patient in the hospital until final arrangements for rehab can be made. cc: Syd Dhaliwal MD
[2018-12-04] MEDS: SEROQUEL PO SCH (21:00)
[2018-12-05] MEDS: ZYVOX PO SCH ×3 (05:49→18:11)
[2018-12-05] MEDS: LOVENOX SUBQ SCH (05:49)
[2018-12-05] MEDS: DUONEB (A & A) INH SCH ×6 (06:12→23:00)
[2018-12-05 07:30] LABS: HEMATOCRIT 35.2 % (37.0-47.0); HEMOGLOBIN 11.3 g/dL (12.0-16.0); MCH 30.5 PG (27-31); MCHC 32.1 g/dL (33-37); MCV 95.1 FL (81-99); RBC 3.7 XMIL (4.2-5.4); RDW 12.9 % (11.5-14.5); WBC 13.67 X1000 (4.8-10.8)
[2018-12-05] MEDS: MUCOMYST 20% INH SCH ×2 (07:33→19:13)
[2018-12-05 07:53] LABS: AGAP 11; ALKALINE PHOSPHATASE 46 U/L (32-104); BUN 13 mg/dL (8-22); CALCIUM 8.6 mg/dL (8.8-10.2); CHLORIDE 105 mmol/L (98-107); COSMO 288; CREATININE 0.7 mg/dL (0.5-0.9); ESTIMATED GFR > 60; GLUCOSE 91 mg/dL (70-104); GOT 16 U/L (10-30); GPT 11 U/L (10-36); MAGNESIUM 1.7 mg/dL (1.5-2.7); POTASSIUM 3.3 mmol/L (3.5-5.1); SODIUM 145 mmol/L (136-145); TCO2 29 mmol/L (25-35); TOTAL PROTEIN 5.6 g/dL (6.3-8.3)
--- NOTE | 2018-12-05 08:22 | Diag Imaging Result Doc PS360 ---
EXAM: CHEST-2 VIEWS HISTORY: hypoxia TECHNIQUE: PA and Lateral chest x-ray COMPARISON: 10/08/2018 and earlier FINDINGS: There is cardiomegaly. 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 It is more prominent than on the prior study from 2016. CT thorax could be considered. There are small bilateral pleural effusions increased from prior unchanged left lower lobe airspace. Prominent interstitial findings remain in the peripheral upper lobes right greater than left. IMPRESSION: Increasing effusions. Unchanged left basilar airspace disease. Right suprahilar mass/scarring unchanged from recent studies from 2019 but more prominent than 2016. Correlate clinically. Electronically signed by Aminah Marin 12/05/2018 8:20 AM
[2018-12-05] MEDS: NAMENDA PO SCH ×2 (08:57→20:41)
[2018-12-05] MEDS: NEURONTIN PO SCH ×3 (08:58→16:32)
[2018-12-05] MEDS: ARICEPT PO SCH (08:58)
[2018-12-05] MEDS: ZOLOFT PO SCH (08:58)
[2018-12-05] MEDS ORDERED: NS 500 ML IV ONE (12:44)
--- NOTE | 2018-12-05 19:42 | PROGRESS NOTE ---
DATE: 12/05/2018 SUBJECTIVE: The patient has no complaints. She notes that she is feeling okay. Denies any chest pain, palpitations, shortness of breath. PHYSICAL EXAM: Vital signs: Temperature 97, pulse 89, respiratory 20, BP 83/51, currently 100 systolic after fluid boluses. HEENT: Normocephalic. Neck: Supple. Cardiovascular: Regular rate. Chest clear, nonlabored. Abdomen: Soft, nondistended. Extremities: Moves all extremities. ASSESSMENT: 1. Hypokalemia stable. 2. Hypotension. 3. Pleural effusions. 4. Dementia. PLAN: We will continue patient in the hospital, continue on IV fluids for a total 500 mL since her blood pressures are improving. We will continue to follow. Further orders as needed. Hopefully, she can transition to rehab soon. cc: Syd Dhaliwal MD
[2018-12-05] MEDS: SEROQUEL PO SCH (20:41)
[2018-12-06] MEDS: DUONEB (A & A) INH SCH ×6 (03:06→22:49)
[2018-12-06] MEDS: ZYVOX PO SCH ×2 (05:10→17:38)
[2018-12-06] MEDS: LOVENOX SUBQ SCH (05:10)
[2018-12-06] MEDS: MUCOMYST 20% INH SCH ×2 (07:57→19:18)
[2018-12-06 08:50] LABS: HEMATOCRIT 31.9 % (37.0-47.0); HEMOGLOBIN 9.9 g/dL (12.0-16.0); MCH 29.7 PG (27-31); MCV 95.8 FL (81-99); RBC 3.33 XMIL (4.2-5.4); RDW 12.9 % (11.5-14.5); WBC 10.2 X1000 (4.8-10.8)
[2018-12-06 08:59] LABS: AGAP 9; ALBUMIN 2.9 g/dL (3.5-5.0); ALKALINE PHOSPHATASE 41 U/L (32-104); BUN 14 mg/dL (8-22); CALCIUM 8.2 mg/dL (8.8-10.2); CHLORIDE 106 mmol/L (98-107); COSMO 289; CREATININE 0.7 mg/dL (0.5-0.9); ESTIMATED GFR > 60; GLUCOSE 103 mg/dL (70-104); GOT 15 U/L (10-30); GPT 10 U/L (10-36); POTASSIUM 3.8 mmol/L (3.5-5.1); SODIUM 145 mmol/L (136-145); TCO2 30 mmol/L (25-35); TOTAL PROTEIN 5.1 g/dL (6.3-8.3)
[2018-12-06] MEDS: NAMENDA PO SCH ×2 (10:58→21:10)
[2018-12-06] MEDS: ZOLOFT PO SCH (10:58)
[2018-12-06] MEDS: NEURONTIN PO SCH ×3 (10:58→21:10)
[2018-12-06] MEDS: ARICEPT PO SCH (10:59)
--- NOTE | 2018-12-06 16:19 | PROGRESS NOTE ---
DATE: 12/06/2018 SUBJECTIVE: Patient has no complaints. She was... INCOMPLETE REPORT --- DICTATION ENDS HERE cc: Syd Dhaliwal MD
[2018-12-06] MEDS: SEROQUEL PO SCH (21:10)
[2018-12-07] MEDS: DUONEB (A & A) INH SCH ×6 (03:08→22:53)
[2018-12-07] MEDS: LOVENOX SUBQ SCH (05:15)
[2018-12-07] MEDS: ZYVOX PO SCH ×2 (05:15→18:10)
[2018-12-07] MEDS: MUCOMYST 20% INH SCH ×2 (07:24→19:21)
[2018-12-07] MEDS: NEURONTIN PO SCH ×3 (10:11→18:10)
[2018-12-07] MEDS: NAMENDA PO SCH ×2 (10:11→20:44)
[2018-12-07] MEDS: ZOLOFT PO SCH (10:11)
[2018-12-07] MEDS: ARICEPT PO SCH (10:11)
[2018-12-07] MEDS: ROCEPHIN 1 GM in NS 50 ML IV SCH (12:23)
--- NOTE | 2018-12-07 18:26 | EKG Report ---
Test Performed on : 12/07/2018 6:04:54 PM Test Reason : CAT CALL Blood Pressure : / mmHG Vent. Rate : 093 BPM Atrial Rate : 093 BPM P-R Int : 128 ms QRS Dur : 084 ms QT Int : 392 ms P-R-T Axes : 062 127 125 degrees QTc Int : 487 ms Normal sinus rhythm. Possible Right ventricular hypertrophy Nonspecific T wave abnormality Abnormal ECG When compared with ECG of 01-DEC-2018 22:38, (Unconfirmed) QRS axis shifted right Confirmed by Denys Malcolm MD ([id number]) on 12/11/2018 9:38:28 PM
--- NOTE | 2018-12-07 19:12 | PROGRESS NOTE ---
DATE: 12/07/2018 SUBJECTIVE: Patient without complaints. She is lying in the bed. She has been ambulating with physical therapy. Still very weak. OBJECTIVE: Her temperature is 98.4 degrees, pulse 84, respiratory 18, BP 103/58 to 80s/60s. She seems to be tolerating these low blood pressures as they typically are happening while she is lying in the bed or asleep.HEENT: Normocephalic. Neck: Supple. Cardiovascular: Regular rate. Chest: Clear. Abdomen: Soft. Extremities: Moves all extremities. ASSESSMENT/PLAN: 1. Hypotension, stable. 2. Hypokalemia. 3. Right lower lobe pneumonia. 4. Gram-negative mandi urinary tract infection. We have started her back on Rocephin. Culture still pending. 5. Dementia. cc: Syd Dhaliwal MD
[2018-12-07] MEDS: SEROQUEL PO SCH (20:44)
[2018-12-08] MEDS: DUONEB (A & A) INH SCH ×6 (03:33→22:39)
[2018-12-08] MEDS: ZYVOX PO SCH (05:11)
[2018-12-08] MEDS: LOVENOX SUBQ SCH (05:11)
[2018-12-08] MEDS: MUCOMYST 20% INH SCH ×2 (07:30→18:54)
[2018-12-08] MEDS: DIFLUCAN PO SCH (11:45)
[2018-12-08] MEDS: NEURONTIN PO SCH ×3 (11:45→18:09)
[2018-12-08] MEDS: ROCEPHIN 1 GM in NS 50 ML IV SCH (11:45)
[2018-12-08] MEDS: ARICEPT PO SCH (11:45)
[2018-12-08] MEDS: NAMENDA PO SCH ×2 (11:45→20:58)
[2018-12-08] MEDS: ZOLOFT PO SCH (11:45)
--- NOTE | 2018-12-08 14:01 | PROGRESS NOTE ---
DATE: 12/08/2018 SUBJECTIVE: The patient has no complaints. Staff notes that she had a syncopal episode yesterday upon standing. She got lightheaded and almost passed out. Thankfully, the staff was there to help her stand. She did not fall. OBJECTIVE: Vital Signs: Temp 97.8, pulse 80, respiratory rate 18, BP 115/75. General: The patient is awake, alert. She is in no distress. HEENT: Normocephalic. Neck: Supple. Cardiovascular: Regular rate. Chest: Clear, nonlabored. Abdomen: Soft. Extremities: Moves all extremities. ASSESSMENT: 1. Escherichia coli urinary tract infection. Will continue antibiotics. 2. Syncope. I expect this is secondary to her urinary tract infection and hypotension. Currently, she has had no further episodes. Has been up without issues 3. Dementia. 4. Generalized weakness. cc: Syd Dhaliwal MD MTDD
[2018-12-08] MEDS: MYCELEX TROCHE PO SCH ×4 (16:44→20:58)
[2018-12-08] MEDS: SEROQUEL PO SCH (20:58)
[2018-12-09] MEDS: NS 1,000 ML IV SCH ×3 (00:45→17:35)
[2018-12-09] MEDS: DUONEB (A & A) INH SCH ×6 (02:40→22:54)
[2018-12-09] MEDS: LOVENOX SUBQ SCH (05:33)
[2018-12-09] MEDS: MUCOMYST 20% INH SCH ×2 (07:33→19:33)
[2018-12-09 07:46] LABS: HEMATOCRIT 28.1 % (37.0-47.0); HEMOGLOBIN 8.8 g/dL (12.0-16.0); MCH 29.9 PG (27-31); MCHC 31.3 g/dL (33-37); MCV 95.6 FL (81-99); MPV 10.7 FL (7.4-10.4); RBC 2.94 XMIL (4.2-5.4); RDW 12.7 % (11.5-14.5); WBC 6.28 X1000 (4.8-10.8)
[2018-12-09 07:56] LABS: AGAP 9; ALBUMIN 2.6 g/dL (3.5-5.0); ALKALINE PHOSPHATASE 44 U/L (32-104); BUN 16 mg/dL (8-22); CALCIUM 8.1 mg/dL (8.8-10.2); CHLORIDE 105 mmol/L (98-107); COSMO 284; CREATININE 0.7 mg/dL (0.5-0.9); ESTIMATED GFR > 60; GLUCOSE 98 mg/dL (70-104); GOT 11 U/L (10-30); GPT 8 U/L (10-36); MAGNESIUM 1.6 mg/dL (1.5-2.7); POTASSIUM 3.2 mmol/L (3.5-5.1); SODIUM 142 mmol/L (136-145); TCO2 29 mmol/L (25-35); TOTAL PROTEIN 4.7 g/dL (6.3-8.3)
[2018-12-09] MEDS ORDERED: KLOR-CON PO ONE (08:20)
[2018-12-09] MEDS ORDERED: LEVAQUIN PO SCH (09:00)
[2018-12-09] MEDS: DIFLUCAN PO SCH (09:01)
[2018-12-09] MEDS: NEURONTIN PO SCH ×3 (09:01→17:35)
[2018-12-09] MEDS: ZOLOFT PO SCH (09:01)
[2018-12-09] MEDS: NAMENDA PO SCH ×2 (09:01→21:09)
[2018-12-09] MEDS: ARICEPT PO SCH (09:01)
[2018-12-09] MEDS: MYCELEX TROCHE PO SCH ×5 (09:15→21:09)
[2018-12-09] MEDS ORDERED: BLISTEX MEDICATED BERRY LIP BALM TOP ONE (11:29)
[2018-12-09] MEDS: BLISTEX MEDICATED BERRY LIP BALM TOP PRN ×2 (11:42→13:32)
[2018-12-09 19:07] VITALS: BP 89/56
[2018-12-09] MEDS: SEROQUEL PO SCH (21:09)
--- NOTE | 2018-12-09 21:14 | PROGRESS NOTE ---
DATE: 12/09/2018 SUBJECTIVE: Patient has no current complaints. She did have an episode of syncope over the weekend, but that seems to have resolved. PHYSICAL EXAMINATION: Vital signs: Temp 98, pulse 94, BP improved back to 100 systolic. She did have an episode at 72/35 during her syncopal episode. HEENT: Normocephalic. Neck: Supple. Cardiovascular: Regular rate. Chest: Clear. Nonlabored. Abdomen: Soft. Extremities: Moves all extremities. ASSESSMENT: 1. Escherichia coli urinary tract infection. Continue Rocephin. 2. Leukocytosis. 3. Hypotension, on IV fluids. 4. Thrombocytopenia. Platelets are at 58. Will certainly stop her Lovenox and will follow. PLAN: Continue antibiotics and fluids. If and when she improves, she can transition to rehab. cc: Syd Dhaliwal MD
[2018-12-10 01:31] LABS: BE -1.7 mmoll (-3.0-3.0); BLOOD TYPE ARTERIAL; HCO3-(ACT) 23.4 mmoll (20.0-26.0); METHB 1.1 % (0.0-1.5); O2(CT) 11.5 mL/dL (15.0-23.0); PCO2(98.6) 38 mmHg (35-45); SAMPLE BLOOD; SAO2 88.4 % (95.0-100.0); SRATE 16 BPM; THB 9.5 g/dL (11.5-17.4); TVOL 500 mL; pH(98.6) 7.39 (7.35-7.45)
[2018-12-10] MEDS ORDERED: ALBUTEROL NEB ONE (01:38)
[2018-12-10 02:02] LABS: ALLEN TEST YES; MODALITY VENTILATOR; O2HB 85.6 % (95.0-99.0); PO2(98.6) 49 mmHg (60-100)
[2018-12-10] MEDS ORDERED: ALBUTEROL NEB INH ONE (02:03)
[2018-12-10 02:10] LABS: BILIRUBIN URINE NEGATIVE (NEGATIVE); BLOOD URINE 4+ (NEGATIVE); CLARITY VERY CLOUDY (CLEAR); COLOR BROWN; GLUCOSE URINE NEGATIVE (NEGATIVE); KETONE URINE TRACE mg/dL (NEGATIVE); LEUKOCYTES URINE 2+ (NEGATIVE); NITRITE URINE POSITIVE (NEGATIVE); PROTEIN URINE 2+(100 mg/dL) mg/dL (NEGATIVE); UROBILINOGEN URINE NORMAL
[2018-12-10 02:12] LABS: URINE EPITHELIAL CELLS <10 /HPF (<10); URINE RBC TNTC /HPF (<10); URINE WBC TNTC /HPF (<10)
[2018-12-10 02:13] LABS: URINE BACTERIA 4+ /HFP; URINE CAST NONE SEEN /LPF; URINE CRYSTAL CA OXALATE PRESENT /HPF; URINE SOURCE CATH
[2018-12-10 02:15] LABS: URINE SMALL ROUND CELLS RENAL PRESENT; URINE YEAST PRESENT /HPF
[2018-12-10] MEDS ORDERED: EPINEPHRINE SYRINGE ONE (03:00)
[2018-12-10] MEDS: DUONEB (A & A) INH SCH (03:35)
--- NOTE | 2018-12-10 07:22 | Diag Imaging Result Doc PS360 ---
EXAM: CHEST-PORTABLE INDICATION: tube placement TECHNIQUE: One view COMPARISON: 12/05/2018 FINDINGS: The newly placed ET tube projects over the trachea and above the andrew at about the T5 level. An electrode pad projects over the chest. There is a small left basilar effusion and adjacent atelectasis and/or infiltrate that is essentially stable. There is increasing opacity at the right lower lobe suggesting worsening infiltrate. No other new consolidation is identified. Cardiac silhouette is stable. IMPRESSION: Increasing opacity at the right lower lobe. Interval placement of ET tube. Electronically signed by Brady Goldstein 12/10/2018 7:19 AM
--- NOTE | 2018-12-10 19:52 | DISCHARGE SUMMARY ---
ADMISSION DATE: 11/23/2018 DISCHARGE DATE: 12/10/2018 DATE OF : 12/10/2018 ADMITTING DIAGNOSES: 1. Pneumonia. 2. Leukocytosis. 3. Hyperkalemia. 4. Elevated troponins. 5. Chronic kidney disease. DISCHARGE/ DIAGNOSES: 1. Pneumonia. 2. Respiratory failure. 3. Cardiac arrest. 4. Urinary tract infection. 5. Thrombocytopenia. ATTENDING: Dr. Dhaliwal. PRONOUNCING PHYSICIAN OF : Dr. Marie. HISTORY AND PHYSICAL: Briefly, this is a 77-year-old elderly female with a history of lung cancer who apparently was admitted at [facility] and was being treated for pneumonia and UTI. The patient was doing well however she deteriorated earlier today. Staff at [facility] found her unresponsive. No pulse. ACLS protocol was started, however she was a DNR level 2 and subsequently due to lack of ICU beds there she was transferred to [facility]. In route, apparently patient lost her pulse again and she was given epinephrine. She was brought to the ICU where she coded. She lost her pulse. There was no spontaneous breathing. ACL protocol was started again. She was given epinephrine however she did not regain her pulse. The patient eventually succumbed to her illness despite all treatments offered. She was pronounced at 2:57. She had no pulse. No spontaneous breathing. No heart rate. Family was informed. The patient's body will be sent to home. cc: Glenn Marie MD
== END 2018-12-10 02:57 | disposition expired | DRG 193 ==
LOC: P.ED 20:52 → SUATTDRO 23:55 → P.ICU 11-24 03:21 → P.MEDSURG 11-26 15:13 → P.EDIPHOLD 12-10 01:37 → ICU 12-10 02:59
PROVIDERS: ATTEND Family Medicine
CPT/HCPCS: 31500; 51702; 70450; 71010; 71020; 71045; 71046; 80048; 80053; 81001; 81050; 82550; 82553; 82805; 82948; 83605; 83735; 83880; 84132; 84133; 84443; 84484; 85025; 85027; 85379; 85610; 85730; 87040; 87077; 87088; 87186; 87275; 87276; 87804; 92950; 93005; 93010; 94002; 94640; 94667; 94668; 94761; 94799; 96365; 96375; 97110; 97116; 97163; 97166; 97530; 97535; 99285; A9270; J0171; J0696; J1650; J2020; J2543; J3475; J3480; J3486; J7030; J7040; XXXXX